=== PATIENT | male | born 1980 | race Hispanic/Latino ===

== ENCOUNTER 2023-01-06 18:14 | Emergency (ER) | payer BC ==
[~2023-01-06] VITALS: Ht 172.7 cm; Wt 97.5 kg
[2023-01-06] MEDS ORDERED: IBUPROFEN 800 MG TAB PO ONE (20:00)
[2023-01-06] MEDS ORDERED: IBUP-2077 PO (20:21)
[2023-01-06 20:44] VITALS: BP 111/68; PULSE 80; RESP 17; O2SAT 98
== END 2023-01-06 20:46 | disposition home or self-care (01) ==
LOC: EDH 18:14
DX: M25.562 Pain in left knee (principal); E11.9 Type 2 diabetes mellitus without complications; I10 Essential (primary) hypertension
CPT/HCPCS: 73562